=== PATIENT | male | born 1985 | race African-American/Black ===

== ENCOUNTER 2016-12-13 11:39 | Emergency (ER) | payer OTHER ==
[2016-12-13 11:45] VITALS: BP 119/87
== END 2016-12-13 14:35 | disposition home or self-care (01) ==
LOC: ED 11:39
DX: S16.1XXA Strain of muscle, fascia and tendon at neck level, initial encounter (principal); G89.29 Other chronic pain; X58.XXXA Exposure to other specified factors, initial encounter; Y93.89 Activity, other specified; Y99.8 Other external cause status; Y92.89 Other specified places as the place of occurrence of the external cause

== ENCOUNTER 2017-04-16 09:36 | Emergency (ER) | payer OTHER ==
[~2017-04-16] VITALS: Ht 170.2 cm; Wt 81.2 kg
[2017-04-16 09:39] VITALS: BP 117/78
== END 2017-04-16 10:26 | disposition home or self-care (01) ==
LOC: ED 09:36
DX: B30.9 Viral conjunctivitis, unspecified (principal)